=== PATIENT | male | born 1945 | race Caucasian/White ===

== ENCOUNTER 2017-07-29 16:06 | Observation (INO) | payer MEDICARE ==
[~2017-07-29] VITALS: Ht 180.3 cm; Wt 49.0 kg
[~2017-07-29 16:06] MED LIST: AMLODIPINE BESY10 MG PO; BICALUTAMIDE50 MG PO
[2017-07-29 20:02] LABS: BASOPHILS % 0.4 % (0.0-1.0); EOSINOPHILS % 0.2 % (0.0-6.0); HEMATOCRIT 26.1 % (38.2-49.6); HEMOGLOBIN 7.6 g/dL (14.0-18.0); LYMPHOCYTES # (AUTO) 3.2 (1.0-3.2); LYMPHOCYTES % 37.3 % (18.0-39.1); MEAN CORPUSCULAR HEMOGLOBIN 26.3 pg (28-32); MEAN CORPUSCULAR HGB CONC 29.1 g/dL (31-35); MEAN CORPUSCULAR VOLUME 90.3 fL (81-99); MONOCYTES # (AUTO) 0.5 (0.2-0.8); NEUTROPHILS # (AUTO) 4.6 (2.1-6.9); NEUTROPHILS % 53.5 % (38.7-80.0); PLATELET COUNT 387 x10e3/uL (140-360); RED BLOOD COUNT 2.89 x10e6/uL (4.3-5.7); RED CELL DISTRIBUTION WIDTH 18.7 % (11.7-14.4)
[2017-07-29 20:20] LABS: ALANINE AMINOTRANSFERASE 6 IU/L (0-55); ALBUMIN 2.9 g/dL (3.5-5.0); ALBUMIN/GLOBULIN RATIO 0.6 (0.8-2.0); ALKALINE PHOSPHATASE 148 IU/L (40-150); ANION GAP 20.2 mmol/L (8-16); BLOOD UREA NITROGEN 20 mg/dL (7-26); BUN/CREATININE RATIO 22 (6-25); CARBON DIOXIDE 22 mmol/L (22-29); CHLORIDE 104 mmol/L (98-107); CREATININE, SERUM 0.91 mg/dL (0.72-1.25); EST GLOMERULAR FILTRATION RATE > 60 ML/MIN (60-); GLUCOSE 168 mg/dL (74-118); POTASSIUM 4.2 mmol/L (3.5-5.1); SODIUM 142 mmol/L (136-145)
[2017-07-29] MEDS ORDERED: SODIUM CHLORIDE FLUSH 10 ML SYR INJ PRN (22:45)
[2017-07-29] MEDS ORDERED: ONDANSETRON HCL INJ 2 MG/ML VIAL IV PRN (22:45)
[2017-07-29] MEDS ORDERED: SODIUM CHLORIDE 0.9% 250ML 250 ML IV ONE (22:45)
[2017-07-29] MEDS ORDERED: FUROSEMIDE INJ 10 MG/ML 2 ML VIAL IV PRN (22:45)
[2017-07-29 23:01] LABS: INR 1.03; PARTIAL THROMBOPLASTIN TIME 23.4 seconds (23.8-35.5); PROTHROMBIN TIME 10.8 seconds (11.9-14.5)
[2017-07-30] VITALS: BP 155/87
[2017-07-30 01:20] VITALS: BP 155/87
[2017-07-30] MEDS: HYDROCODONE/APAP 7.5MG-325MG 1 EA TAB PO PRN ×2 (01:27→09:16)
[2017-07-30 04:00] VITALS: BP 150/82
[2017-07-30] MEDS ORDERED: SODIUM CHLORIDE 0.9% 250ML 250 ML ONE (05:46)
--- NOTE | 2017-07-30 06:24 | Diagnostic Imaging Report ---
CHEST SINGLE (PORTABLE), 07/30/2017 5:00 AM Technique: CHEST SINGLE (PORTABLE) Comparison: None available. Clinical history: \S\prostate cancer, tachypnea Findings: Limited portable view of the chest. Heart/mediastinum: Likely normal given technique. Tortuous and/or ectatic descending thoracic aorta likely accentuated by technique. Lungs/pleura: 2 cm nodular density projects over the left upper lung. Impression: 1. Diffusely hyperdense mottled bones in keeping with metastatic disease. 2. Left upper lung nodular density, which may be summation shadow from bone disease or lung nodule. Recommend upright PA and lateral. Signed by: Dr Xiomara Soliz MD on 07/30/2017 6:20 AM
--- NOTE | 2017-07-30 07:50 | Consultation ---
DATE OF CONSULTATION: July 29, 2017 PULMONARY/CRITICAL CARE MEDICINE CONSULT REFERRING PHYSICIAN: Dr. Pepper ONCOLOGIST: Dr. Ramirez HISTORY: Mr. Tran is a pleasant 72-year-old gentleman with GI bleed. Patient was in usual state of health with only slight dizziness recently. Patient's family member notified him that his stools looked little bit dark. They had characteristic blackish kind of appearance. Patient went to the office of his oncologist, Dr. Ramirez. There it was noted that patient had anemia. in the hospital, 7.6 hemoglobin, 26.1 hematocrit. Patient was elected to go to the emergency room for critical evaluation. Patient blood pressure remained sustained at this moment, but he is tachycardic with 90s to 100s heart rate. Patient with previous critical occurrence in April 2017. Patient received blood transfusions at that time. Patient was allowed for GI consultation. Patient with complicated history of cancer, on multiple medications and the cancer is metastatic. PAST MEDICAL HISTORY: Hypertension, metastatic prostate cancer including bone and brain metastases. Chronic anemia. Arthralgia. Orchiectomy due to prostate cancer. SOCIAL HISTORY: No smoking, no drinking, no drugs. Patient formerly worked as student truck driver. FAMILY HISTORY: Noncontributory to this. MEDICATIONS: Medication list reviewed per electronic record. They include Casodex and patient has had Lupron shots. Also on pain medicines. Other medicines per record. ALLERGIES: NO KNOWN DRUG ALLERGIES. REVIEW OF SYSTEMS: GENERAL: There is mild weight loss. HEENT: No dry mouth. ENDOCRINE: No thyroid disease. PULMONARY: No asthma. CARDIAC: No heart attacks. GI: No GERD. : No blood in urine. MUSCULOSKELETAL: Mild arthritis. NEUROLOGIC: No seizures. PSYCHIATRIC: No depression. DERMATOLOGIC: No rash. PHYSICAL EXAMINATION: VITAL SIGNS: Reviewed per electronic record. GENERAL: In no distress, in bed, slightly weak. HEENT: Normocephalic, atraumatic. NECK: Supple. Throat midline. LUNGS: Bilateral air entry, few rhonchi heard. CARDIOVASCULAR: S1 and S2. No murmurs, rubs, or gallops. ABDOMEN: Soft, nontender. EXTREMITIES: No clubbing, no cyanosis, there is no edema. INTEGUMENT: No rash, no purpura. LABS: Labs noted per electronic record. IMPRESSION AND PLAN: 1. Symptomatic anemia. 2. Gastrointestinal bleed, likely upper. 3. Weakness. 4. History of metastatic prostate cancer including bony and brain metastases. 5. Moderate protein-calorie malnutrition. 6. History of hypertension. 7. Arthralgias. At this time, will check screening x-ray. Continue serial hemoglobin and hematocrit evaluations. Patient will get blood transfusions. Follow along serial vitals. Patient may or may not need emergency endoscopy based on how he does. Will follow along closely. He needs to continue his prostate cancer medication to resolve the prostate lesions. I was unable to get a good history of outcome of the brain metastasis, but as of now he is off steroids and antiepileptic for that, so I assume that the risk is really resolved and his CAT scans have improved, but this is my deduction. Will follow along closely with you. Thank you very much, Dr. Pepper and Dr. Ramirez for allowing me the chance to participate in care of Mr. Tran. Do not hesitate to contact me if I can help in any way. Job#: [id number]
[2017-07-30 08:05] VITALS: BP 144/81
[2017-07-30] MEDS ORDERED: AMLODIPINE BESYLATE 10 MG TAB PO SCH (09:00)
[2017-07-30] MEDS: BICALUTAMIDE 50 MG TABLET PO SCH ×2 (10:12→17:52)
[2017-07-30 10:33] LABS: BASOPHILS % 0.4 % (0.0-1.0); EOSINOPHILS % 0.2 % (0.0-6.0); HEMATOCRIT 34.7 % (38.2-49.6); HEMOGLOBIN 10.9 g/dL (14.0-18.0); LYMPHOCYTES # (AUTO) 2.4 (1.0-3.2); MEAN CORPUSCULAR HEMOGLOBIN 27.7 pg (28-32); MEAN CORPUSCULAR HGB CONC 31.4 g/dL (31-35); MEAN CORPUSCULAR VOLUME 88.3 fL (81-99); MONOCYTES # (AUTO) 0.5 (0.2-0.8); MONOCYTES % 5.8 % (4.4-11.3); NEUTROPHILS # (AUTO) 5.1 (2.1-6.9); NEUTROPHILS % 61.6 % (38.7-80.0); PLATELET COUNT 409 x10e3/uL (140-360); RED BLOOD COUNT 3.93 x10e6/uL (4.3-5.7)
[2017-07-30 11:01] LABS: ALANINE AMINOTRANSFERASE 6 IU/L (0-55); ALBUMIN 3.1 g/dL (3.5-5.0); ALBUMIN/GLOBULIN RATIO 0.6 (0.8-2.0); ALKALINE PHOSPHATASE 174 IU/L (40-150); ANION GAP 19.5 mmol/L (8-16); BLOOD UREA NITROGEN 13 mg/dL (7-26); BUN/CREATININE RATIO 18 (6-25); CALCIUM 10.7 mg/dL (8.4-10.2); CARBON DIOXIDE 26 mmol/L (22-29); CHLORIDE 100 mmol/L (98-107); CREATININE, SERUM 0.72 mg/dL (0.72-1.25); EST GLOMERULAR FILTRATION RATE > 60 ML/MIN (60-); GLUCOSE 175 mg/dL (74-118); POTASSIUM 3.5 mmol/L (3.5-5.1); SODIUM 142 mmol/L (136-145)
[2017-07-30 11:48] LABS: BAND NEUTROPHILS % (MANUAL) 1 %; EOSINOPHILS % (MANUAL) 1 % (0-7); LYMPHOCYTES % (MANUAL) 32 % (19-48); MONOCYTES % (MANUAL) 5 % (3.4-9.0); NEUTROPHILS % (MANUAL) 60 % (40-74); NUCLEATED RED BLOOD CELLS 1
[2017-07-30 11:49] LABS: ANISOCYTOSIS SLIG; POLYCHROMASIA FEW
[2017-07-30 11:50] LABS: MICROCYTOSIS SLIGHT; PLATELET ESTIMATE ADEQUATE; PLATELET MORPHOLOGY COMMENT NORMAL; POIKILOCYTOSIS SLIG; RBC MORPHOLOGY COMMENT NORMAL
[2017-07-30 12:25] VITALS: BP 131/76
--- NOTE | 2017-07-30 14:52 | Progress Note ---
DATE: July 30, 2017 PULMONARY MEDICINE PROGRESS NOTE SUBJECTIVE: Mr. Tran was seen and examined at bedside. He is 97% oxygen saturation. He is on room-air oxygen. He received packed red blood cells with appropriate rise in H\T\H. His stool is a little bit more brown today and less black. REVIEW OF SYSTEMS: No shortness of breath, no dizziness while at rest in bed. OBJECTIVE VITAL SIGNS: Afebrile. Vital signs noted per electronic record. GENERALLY: No acute distress, alert and calm. HEENT: Normocephalic, atraumatic. NECK: Supple. Throat midline. LUNGS: Bilateral air entry, rare rhonchi, mostly clear. CARDIOVASCULAR: S1 and S2. No murmurs, rubs or gallops. ABDOMINAL: Soft, nontender. EXTREMITIES: No clubbing, no cyanosis. There is no edema except at very, very distal feet. INTEGUMENT: No rash. No purpura. LABS: Hemoglobin 10.9, hematocrit 34.7, white count 8.2. Potassium 3.5, creatinine 0.7. IMPRESSION AND PLAN 1. Gastrointestinal bleed, likely upper and slow. 2. Symptomatic anemia. 3. Prostate cancer with multiple metastases. 4. Multiple nodules on chest x-ray, bony metastasis plus or minus lung. At this time, will continue doing what we are doing. Serial H\T\H. Follow up for GI bleeding clinically. Will reevaluate lung nodules with time. Mobilize him and see if he is dizzy. Check orthostatics. Job#: [id number] EV
[2017-07-30] MEDS ORDERED: ACETAMINOPHEN 325 MG TAB PO PRN (15:30)
[2017-07-30 15:39] VITALS: BP 138/72
--- NOTE | 2017-07-30 16:54 | History and Physical ---
SHORTSTAY SUMMARY CHIEF COMPLAINT: Fatigue, found to be anemic. HISTORY OF PRESENT ILLNESS: This is 72-year-old male with history of anemia, currently has prostate cancer with metastasis, not on any chemotherapy per the patient's choice. He comes in with complaints of slight dizziness. The patient reports that the oncology office told him that his hemoglobin was 7.6, and was told to come to the emergency room for further evaluation. The patient denies any black, tarry stool, hematochezia, hemoptysis or any hematemesis. He also denies any hematuria. He reports having a GI evaluation in the past. The patient was seen and evaluated at bedside on the medical floor. He had received 3 units of packed red blood cells with hemoglobin greater than 10 now. The patient reports feeling much better. I discussed the case with nurse and reports no evidence of any black, tarry stool, and also the patient does not have any coffee ground emesis. The patient was doing well with no other complaints. The patient verbalized he wants to go home. REVIEW OF SYSTEMS: Pertinent positives: Generalized weakness and fatigue. Pertinent negatives: Denies any chest pain, palpitations, nausea, vomiting, diarrhea, dysuria, hematuria, frequency, urgency, lightheadedness, dizziness, abdominal pain, headache, shortness of breath. There were no other complaints. The rest of the 14-point review of systems have been reviewed with the patient and are negative. ALLERGIES: NO KNOWN DRUG ALLERGIES. HOME MEDICATIONS: Casodex and Lupron shots. He also takes amlodipine 10 mg daily. He is not on any chemotherapy per the patient's choice. PAST MEDICAL HISTORY: Hypertension. Metastatic prostate cancer including bone and brain metastasis, chronic anemia, arthralgias, arterectomy due to prostate cancer. FAMILY HISTORY: Hypertension, diarrhea. PAST SURGICAL HISTORY: He reports none. SOCIAL HISTORY: No smoking, no drugs, no alcohol. He has good social support. PHYSICAL EXAMINATION VITAL SIGNS: Temperature 97.9, pulse 98, respiratory rate 18, blood pressure 138/72, pulse oximetry is 99%. He is on room air. GENERAL: In no acute distress. Alert and oriented x3. Cooperative to exam. He is very cachectic on examination, thin, frail male. HEENT: Head normocephalic, atraumatic. Eyes: Pupils are equal, round, and reactive to light bilaterally. Extraocular movements intact bilaterally. Throat with no evidence of any erythema or exudate in the posterior pharynx. He has poor dentition. NECK: Supple with good range of motion. PULMONARY: Clear to auscultation bilaterally. No wheezing, no rales, no rhonchi, no crackles appreciated. CARDIOVASCULAR: Positive S1/S2. No murmurs, rubs or gallops appreciated. ABDOMEN: Soft, nondistended, nontender to palpation. Bowel sounds present. MUSCULOSKELETAL: Strength is 5/5 throughout. No evidence of any musculoskeletal deficit on examination. No weakness appreciated. NEUROLOGICAL: Cranial nerves 2-12 are grossly intact. No evidence of any neurological deficit on exam. SKIN: Intact. Warm to touch. Good capillary refill. PSYCHIATRIC: Normal affect and mood. EXTREMITIES: No edema. Good range of motion throughout. LABORATORY DATA: White count 8.5, hemoglobin on admission 7.6, given 3 units of packed red blood cells, hemoglobin 10.9, hematocrit on admission 26 and on discharge 34.7. Platelets of 387,000. His coagulation, PT 10.8, INR 1, PTT 23.4. Chemistries: Sodium 142, potassium 3.5, chloride 100, bicarb 26, anion gap of 19, BUN 13, creatinine 0.7, glucose 175, calcium 10.7. LFTs were normal. Total protein 8.4, albumin 3.1. IMAGING: Chest x-ray: Shows diffusely hyperdense mottled bones, likely due to metastatic disease. Left upper lung nodule density may be formation shatter from bone disease or lung nodule. ASSESSMENT 1. Symptomatic anemia with generalized weakness and fatigue. 2. Generalized weakness. 3. Metastatic prostate cancer. 4. Hypertension. 5. Refuses chemotherapy treatment per the patient's choice. PLAN: At this time, the patient has received 3 units of packed RBCs with much improvement in his hemoglobin with discharge hemoglobin of 10.9. The patient denies any black, tarry stool, hematemesis, hemoptysis or any hematochezia and will likely need outpatient followup with GI. 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 His hemoglobin has been stable with no other complaints and his vital signs are stable on discharge. The patient will be given a script for Norvasc 10 mg daily as he has run out of his antihypertensives for home. At this time, the patient is stable, cleared to be discharged home. The patient had no other complaints and I answered all of his questions accordingly. Discussed the case with nursing staff. If he experiences any worsening symptoms, the patient is advised to come back to the ED for further evaluation. Discharge time took greater than 35 minutes. Job#: [id number] NIKKO
--- NOTE | 2017-07-31 12:19 | Consultation ---
DATE OF CONSULTATION: July 29, 2017 REQUESTING PHYSICIAN: Dr. Adablerto Pepper. HEMATOLOGY/ONCOLOGY SERVICE REASON FOR CONSULTATION: Evaluation and management of patient with severe anemia and metastatic prostate cancer. HISTORY OF PRESENT ILLNESS: Mr. Tran is a very pleasant 72-year-old gentleman who is very well known to me as he has been following with me in the clinic. He was seen and evaluated in the clinic yesterday, had a lab revealing severe anemia, subsequently sent to the emergency department for further evaluation. I have evaluated him in the emergency department, and after discussion with the emergency department physician, he is going to be admitted to inpatient floor for further care. Presently, he is complaining of fatigue, tiredness, and not feeling well. He has metastatic prostate cancer and most recently he has been diagnosed with metastatic brain disease. He was recommended for hospice care; however, he declined. PAST MEDICAL HISTORY 1. Metastatic prostate cancer. 2. Hypertension. 3. anemia. 4. Arthralgia. PAST SURGICAL HISTORY: Orchiectomy due to prostate cancer. SOCIAL HISTORY: Denies a history of smoking, alcohol use, or illicit drug use. ALLERGIES: NO KNOWN DRUG ALLERGIES. CURRENT MEDICATIONS: Reviewed as per electronic medical record. REVIEW OF SYSTEMS: A 14-point review of systems negative except as mentioned in history of present illness. PHYSICAL EXAMINATION VITAL SIGNS: Reviewed as per electronic medical record. HEENT: PERRLA. Extraocular movements intact. Head atraumatic, normocephalic. NECK: Supple. CVS: S1 and S2 audible. RESPIRATORY: Decreased bilateral air entry. ABDOMEN: Soft. Positive bowel sounds. EXTREMITIES: Trace edema. Negative calf tenderness. NEURO: Patient is alert and awake. LABORATORY DATA: Reviewed as per electronic medical record. ASSESSMENT AND PLAN: Mr. Tran is a very pleasant 72-year-old gentleman who is very well known to me that had been getting treated for metastatic prostate cancer, now presented with severe anemia. I had a lengthy discussion with the patient about his current disease status and importance of further workup as well as transfusion. He is going to be admitted to inpatient floor with the planning to have at least a couple of units of transfusion. He will be under observation to rule out any other acute pathology. Thank you for the consult. I will continue to be available. Please call with questions. Job#: [id number] CF
--- NOTE | 2017-07-31 12:36 | Progress Note ---
DATE: July 30, 2017 FOLLOWUP NOTE CHIEF COMPLAINT: Patient with metastatic prostate cancer, admitted due to anemia, now feeling better. OBJECTIVE VITAL SIGNS: Reviewed as per electronic medical record. HEENT: PERRLA. Extraocular movement intact. Head is atraumatic, normocephalic. NECK: Supple. CVS: S1, S2 audible. RESPIRATORY: Decreased bilateral air entry. ABDOMEN: Positive bowel sounds. EXTREMITIES: No edema. NEURO: Patient is alert, awake. LABORATORY DATA: Reviewed. ASSESSMENT AND PLAN: Mr. Tran is a very pleasant 72-year-old gentleman with metastatic prostate cancer, now present with severe anemia. His anemia is multifactorial. He has been given 2 units of packed red blood cell transfusion with improved hemoglobin. I had a discussion with primary attending and after discussion, it has been planned for him to go home with instruction to follow up with me on Thursday. Job#: [id number]
== END 2017-07-30 18:17 | disposition home or self-care (01) ==
LOC: ER 16:06 → IMCU 23:43
PROVIDERS: ADMIT Internal Medicine; ATTEND Internal Medicine
DX: D64.9 Anemia, unspecified (principal); K92.2 Gastrointestinal hemorrhage, unspecified; C61 Malignant neoplasm of prostate; C79.31 Secondary malignant neoplasm of brain; C79.51 Secondary malignant neoplasm of bone; E44.0 Moderate protein-calorie malnutrition; I10 Essential (primary) hypertension; M25.50 Pain in unspecified joint
CPT/HCPCS: 36415 ×2; 36430; 71010; 80053 ×2; 85025 ×2; 85610; 85730; 86850; 86900; 86920; 93005; 99284; G0378 ×2; J1940; J7050; P9016

== ENCOUNTER 2017-08-28 11:05 | Inpatient (IN) | payer MEDICARE ==
[~2017-08-28] VITALS: Ht 180.3 cm; Wt 51.3 kg
[2017-08-28 12:25] LABS: BASOPHILS % 0.4 % (0.0-1.0); EOSINOPHILS % 0.1 % (0.0-6.0); LYMPHOCYTES # (AUTO) 2.7 (1.0-3.2); LYMPHOCYTES % 31.6 % (18.0-39.1); MEAN CORPUSCULAR HEMOGLOBIN 27.3 pg (28-32); MEAN CORPUSCULAR HGB CONC 30.2 g/dL (31-35); MEAN CORPUSCULAR VOLUME 90.6 fL (81-99); MONOCYTES # (AUTO) 0.5 (0.2-0.8); MONOCYTES % 5.8 % (4.4-11.3); NEUTROPHILS # (AUTO) 4.8 (2.1-6.9); NEUTROPHILS % 57.1 % (38.7-80.0); PLATELET COUNT 354 x10e3/uL (140-360); RED BLOOD COUNT 2.67 x10e6/uL (4.3-5.7); RED CELL DISTRIBUTION WIDTH 16.4 % (11.7-14.4); RETICULOCYTE % 3.1 % (0.8-2.2)
[2017-08-28 12:29] LABS: INR 1.15; PROTHROMBIN TIME 15.3 seconds (11.9-14.5)
[2017-08-28 12:30] LABS: PARTIAL THROMBOPLASTIN TIME 37.1 seconds (23.8-35.5)
[2017-08-28 12:32] LABS: HEMATOCRIT 24.2 % (38.2-49.6); HEMOGLOBIN 7.3 g/dL (14.0-18.0)
[2017-08-28 12:36] LABS: % IRON SATURATION 56 % (15-50); ALANINE AMINOTRANSFERASE < 6 IU/L (0-55); ALBUMIN 2.7 g/dL (3.5-5.0); ALBUMIN/GLOBULIN RATIO 0.6 (0.8-2.0); ALKALINE PHOSPHATASE 170 IU/L (40-150); ANION GAP 16.1 mmol/L (8-16); BLOOD UREA NITROGEN 14 mg/dL (7-26); BUN/CREATININE RATIO 22 (6-25); CALCIUM 9.6 mg/dL (8.4-10.2); CARBON DIOXIDE 23 mmol/L (22-29); CHLORIDE 108 mmol/L (98-107); CREATININE, SERUM 0.65 mg/dL (0.72-1.25); EST GLOMERULAR FILTRATION RATE > 60 ML/MIN (60-); GLUCOSE 134 mg/dL (74-118); IRON 87 ug/dL (65-175); POTASSIUM 3.1 mmol/L (3.5-5.1); SODIUM 144 mmol/L (136-145); TOTAL IRON BINDING CAPACITY 155 ug/dL (261-478); TRANSFERRIN 111 mg/dL (174-364)
[2017-08-28 12:56] LABS: THYROID STIMULATING HORMONE 1.303 uIU/mL (0.350-4.940)
[2017-08-28 13:43] LABS: FERRITIN 4956.68 ng/mL (21.81-274.66)
[2017-08-28] MEDS ORDERED: SODIUM CHLORIDE 0.9% 250ML 250 ML IV ONE (14:00)
[2017-08-28] MEDS ORDERED: FUROSEMIDE INJ 10 MG/ML 2 ML VIAL IV PRN (14:00)
[2017-08-28] MEDS ORDERED: ONDANSETRON HCL INJ 2 MG/ML VIAL IV PRN (15:00)
[2017-08-28] MEDS ORDERED: SODIUM CHLORIDE FLUSH 10 ML SYR INJ PRN (15:00)
[2017-08-28 17:13] VITALS: BP 126/69
[2017-08-28 18:37] VITALS: BP 126/69
[2017-08-28 19:57] VITALS: BP 112/59
[2017-08-28 21:30] VITALS: BP 112/59
[2017-08-28] MEDS ORDERED: ACETAMINOPHEN 325 MG TAB PO PRN (21:30)
[2017-08-28] MEDS ORDERED: SODIUM CHLORIDE 0.9% 250ML 250 ML ONE (21:57)
[2017-08-28] MEDS: MORPHINE SULFATE 2 MG/ML SYR IV PRN (22:00)
[2017-08-29] VITALS (9 sets, daily range): BP systolic 125–154; BP diastolic 69–76
[2017-08-29] MEDS: MORPHINE SULFATE 2 MG/ML SYR IV PRN (02:40)
[2017-08-29] MEDS ORDERED: SODIUM CHLORIDE 0.9% 250ML 250 ML ONE ×2 (05:21→12:57)
[2017-08-29] MEDS: AMLODIPINE BESYLATE 10 MG TAB PO SCH (08:24)
[2017-08-29] MEDS: BICALUTAMIDE 50 MG TABLET PO SCH ×2 (08:24→17:21)
[2017-08-29 10:24] LABS: BASOPHILS % 0.4 % (0.0-1.0); EOSINOPHILS % 0.3 % (0.0-6.0); HEMATOCRIT 28.7 % (38.2-49.6); HEMOGLOBIN 9.2 g/dL (14.0-18.0); LYMPHOCYTES # (AUTO) 2.1 (1.0-3.2); LYMPHOCYTES % 30.8 % (18.0-39.1); MEAN CORPUSCULAR HEMOGLOBIN 27.3 pg (28-32); MEAN CORPUSCULAR HGB CONC 32.1 g/dL (31-35); MEAN CORPUSCULAR VOLUME 85.2 fL (81-99); MONOCYTES # (AUTO) 0.6 (0.2-0.8); MONOCYTES % 8.5 % (4.4-11.3); NEUTROPHILS # (AUTO) 3.8 (2.1-6.9); NEUTROPHILS % 55.3 % (38.7-80.0); PLATELET COUNT 277 x10e3/uL (140-360); RED BLOOD COUNT 3.37 x10e6/uL (4.3-5.7); RED CELL DISTRIBUTION WIDTH 17.6 % (11.7-14.4)
[2017-08-29 10:34] LABS: ANION GAP 15.7 mmol/L (8-16); BLOOD UREA NITROGEN 11 mg/dL (7-26); BUN/CREATININE RATIO 17 (6-25); CALCIUM 9.2 mg/dL (8.4-10.2); CARBON DIOXIDE 24 mmol/L (22-29); CHLORIDE 107 mmol/L (98-107); CREATININE, SERUM 0.64 mg/dL (0.72-1.25); EST GLOMERULAR FILTRATION RATE > 60 ML/MIN (60-); GLUCOSE 141 mg/dL (74-118); SODIUM 144 mmol/L (136-145)
[2017-08-29 10:37] LABS: POTASSIUM 2.7 mmol/L (3.5-5.1)
[2017-08-29 12:08] LABS: EOSINOPHILS % (MANUAL) 1 % (0-7); LYMPHOCYTES % (MANUAL) 30 % (19-48); MONOCYTES % (MANUAL) 9 % (3.4-9.0); NEUTROPHILS % (MANUAL) 53 % (40-74); PLATELET ESTIMATE ADEQUATE; PLATELET MORPHOLOGY COMMENT NORMAL; RBC MORPHOLOGY COMMENT NORMAL
[2017-08-29] MEDS ORDERED: POTASSIUM CHLORIDE 100 ML IV ONE (13:00)
[2017-08-29] MEDS ORDERED: POTASSIUM CHLORIDE 20 MEQ TAB CR PO ONE (13:00)
--- NOTE | 2017-08-29 16:10 | History and Physical ---
CHIEF COMPLAINT: Anemia. HISTORY OF PRESENT ILLNESS: Mr. Tran is a 72-year-old male who was sent to the emergency room by his primary care physician with anemia. The patient denies any complaints of chest pain, nausea, vomiting, or abdominal pain. He has history of metastatic prostate cancer and was recently admitted with anemia. He was discharged in the end of July. The patient received blood transfusion then as well and Dr. Ramirez evaluated the patient. Patient is complaining of leg pain, which is also chronic. REVIEW OF SYSTEMS GENERAL: Patient has fatigue and weakness, but denies any fever or chills. HEAD: Denies any head trauma or head injury. ENT: Denies any ear ache, nosebleed, or throat pain. CVS: Denies any chest pain. RESPIRATORY: Denies any shortness of breath. Rest of the review of systems are negative except as in HPI. PAST MEDICAL HISTORY: Hypertension, metastatic prostate cancer including bone mets, chronic anemia, and arthralgia. PAST SURGICAL HISTORY: Orchiectomy due to prostate cancer. FAMILY AND SOCIAL HISTORY: Denies any history of smoking, alcohol use, or illicit drug use. PHYSICAL EXAM VITAL SIGNS: Temperature 98.4, pulse of 97, blood pressure 154/72, respiratory rate of 18, and O2 sat 98%. SKIN: Warm and dry. CHEST: Clear to auscultation bilaterally. No wheezing. No crackles. HEART: S1 and S2 audible. ABDOMEN: Soft and nontender. EXTREMITIES: No clubbing, cyanosis, or edema. NEUROLOGICAL: Awake and alert. LABS: White count of 6.8, hemoglobin 9.2, and platelets 277. Chemistry: Sodium 144, potassium 2.7, chloride 107, BUN 11, and creatinine 0.64. ASSESSMENT/PLAN: Mr. Dominic Tran is a 72-year-old male admitted with anemia. Patient apparently has chronic anemia and has previous admission with similar complaints. He is denying any complaints of chest pain, abdominal pain, nausea, vomiting, or any gastrointestinal bleed. CURRENT PROBLEMS 1. Anemia. 2. History of metastatic prostate cancer. 3. Hypertension. PLAN Consult hematology and oncology. Blood transfusion. Continue antihypertensive medications. Discharge when okay with hematology. Job#: [id number] JOSLYN
[2017-08-30 05:24] VITALS: BP 138/70
[2017-08-30 07:40] VITALS: BP 138/70
[2017-08-30] MEDS: AMLODIPINE BESYLATE 10 MG TAB PO SCH (07:46)
[2017-08-30] MEDS: MORPHINE SULFATE 2 MG/ML SYR IV PRN (07:46)
[2017-08-30] MEDS: BICALUTAMIDE 50 MG TABLET PO SCH (07:46)
[2017-08-30 08:54] VITALS: BP 136/80
[2017-08-30 12:53] VITALS: BP 125/74
--- NOTE | 2017-08-30 14:52 | Discharge Summary ---
This is a patient of Dr. Bowles and Dr. Ramirez. This unfortunate, 72-year-old gentleman was referred to the emergency room with anemia, fatigue and weakness. Known widely metastatic prostate cancer. He was transfused 2 units of blood. His potassium was replaced, and he was discharged to be followed by Dr. Ramirez as an outpatient. He will continue on amlodipine and glutamine 50 mg b.i.d. Thank you for this kind referral. TEMO PANDA MD Job#: [id number]
--- NOTE | 2017-08-31 08:34 | Discharge Summary ---
ADDENDUM Mr. Tran's hemoglobin was 7.3 on admission. MCH was 27.3, MCHC 30.2, RDW 16.4. There were 3.1 reticulocytes. After transfusion, his hemoglobin mariama to 9.2. His ferritin level was 4956. Alkaline phosphatase was elevated at 170 related to bone metastases. Normal thyroid. Normal B12. TEMO PANDA MD Job#: [id number]
== END 2017-08-30 15:36 | disposition home or self-care (01) | DRG 723 ==
LOC: ER 11:05 → ERHOLD 16:50 → MED/SURG 16:53
PROVIDERS: ADMIT Internal Medicine; ATTEND Internal Medicine
PROC: 30243N1 Transfusion of Nonautologous Red Blood Cells into Central Vein, Percutaneous Approach (ICD-10-PCS; principal; 2017-08-28)
DX: C61 Malignant neoplasm of prostate (principal); C79.51 Secondary malignant neoplasm of bone; D63.0 Anemia in neoplastic disease; E87.6 Hypokalemia; I10 Essential (primary) hypertension; R53.82 Chronic fatigue, unspecified
CPT/HCPCS: 36415; 36430; 80048; 80053; 82607; 82668; 82728; 83540; 84132; 84443; 84466; 85025; 85045; 85610; 85730; 86850; 86900; 86920; 99284; J1940; J2270; J7050; P9016